=== PATIENT | male | born 1985 | race Caucasian/White ===

== ENCOUNTER 2023-08-20 13:37 | Inpatient (IN) | payer OTHER ==
[2023-08-20] MEDS: ONDANSETRON *ODT* 4 MG TABLET SL PRN (04:00)
[2023-08-20 14:46] VITALS: BMI 15.6
[2023-08-20] MEDS ORDERED: BISMUTH SUBSALICYLATE 524 MG/30 ML PO PRN (15:18)
[2023-08-20] MEDS ORDERED: MAGNESIUM HYDROX 2400MG/30ML ORAL SUSPENSION 30 ML CUP PO PRN (15:18)
[2023-08-20] MEDS ORDERED: IBUPROFEN 400 MG TABLET (FP) PO PRN (15:18)
[2023-08-20] MEDS ORDERED: ACETAMINOPHEN 325 MG TABLET (FP) PO PRN (15:18)
[2023-08-20] MEDS ORDERED: NALOXONE HCL (KLOXXADO) 8 MG SPRAY NS PRN (15:18)
[2023-08-20] MEDS ORDERED: diazePAM 5 MG TABLET PO ONE (15:18)
[2023-08-20] MEDS ORDERED: DICYCLOMINE HCL 10 MG CAPSULE PO PRN (15:18)
[2023-08-20] MEDS ORDERED: IBUPROFEN 600 MG TABLET (FP) PO PRN (15:18)
[2023-08-20] MEDS ORDERED: MAG HYDROX/AL HYDROX/SIMETH 30 ML UNIT-DOSE CUP PO PRN (15:18)
[2023-08-20] MEDS ORDERED: BENZOCAINE/MENTHOL (CHLORASEPTIC ) LOZENGE MM PRN (15:18)
[2023-08-20] MEDS ORDERED: guaiFENesin 600 MG TABLET.ER (FP) PO PRN (15:18)
[2023-08-20] MEDS ORDERED: BENZONATATE 200 MG CAPSULE PO PRN (15:18)
[2023-08-20] MEDS ORDERED: POLYETHYLENE GLYCOL (HEALTHYLAX) 3350 17 GM PACKET PO PRN (15:18)
[2023-08-20] MEDS ORDERED: diazePAM 5 MG TABLET PO PRN (15:18)
[2023-08-20] MEDS ORDERED: LOPERAMIDE HCL 2 MG CAPSULE PO PRN (15:18)
[2023-08-20] MEDS ORDERED: NALOXONE HCL 0.4 MG/ML VIAL IM PRN (15:18)
[2023-08-20] MEDS ORDERED: diazePAM 5 MG TABLET ONE (15:50)
[2023-08-20] MEDS: PRENATAL VITAMINS W/ FOLIC ACID TABLET (FP) PO SCH (15:57)
[2023-08-20] MEDS: diazePAM 5 MG TABLET PO SCH ×2 (18:27→22:27)
[2023-08-20] MEDS: METHOCARBAMOL 500 MG TABLET PO PRN (18:29)
[2023-08-20] MEDS ORDERED: MELATONIN 5 MG TABLETS PO SCH (22:00)
[2023-08-20] MEDS ORDERED: hydrOXYzine PAMOATE 25 MG CAPSULE (FP) PO PRN (22:00)
[2023-08-20] MEDS ORDERED: THIAMINE HCL 100 MG TABLET (FP) PO SCH (22:00)
[2023-08-20] MEDS: hydrOXYzine PAMOATE 25 MG CAPSULE (FP) PO PRN (22:26)
[2023-08-20] MEDS: levETIRAcetam 500 MG TABLET (FP) PO SCH (22:27)
[2023-08-21] MEDS: diazePAM 5 MG TABLET PO SCH ×2 (05:18→10:57)
[2023-08-21] MEDS: METHOCARBAMOL 500 MG TABLET PO PRN ×2 (05:21→14:59)
[2023-08-21 08:52] LABS: HEMATOCRIT 39.1 % (35.4-49); HEMOGLOBIN 13.2 GM/dL (11.7-16.9); MCH 31.4 pg (25.7-33.7); MCHC 33.6 g/dl (32.0-35.9); MEAN CELL VOLUME 93.4 fl (80-96); MEAN PLT VOLUME 6.8 fl (7.5-11.1); PLATELET COUNT 294 10^3/uL (134-434); RBC 4.19 M/mm3 (4.00-5.60); RDW 12.7 % (11.9-15.9); WHITE BLOOD COUNT 3.7 K/mm3 (4.0-10.0)
[2023-08-21 08:54] LABS: CHLORIDE 97 mmol/L (98-107); SODIUM 135 mmol/L (136-145)
[2023-08-21 09:05] LABS: CALCIUM 9.2 mg/dL (8.5-10.1)
[2023-08-21 09:06] LABS: ALBUMIN 3.8 g/dl (3.4-5.0); ANION GAP 5 mmol/L (4-13); BLOOD UREA NITROGEN 15.7 mg/dL (7-18); CO2 34 mmol/L (21-32); GLUCOSE,RANDOM 78 mg/dL (74-106)
[2023-08-21 09:09] LABS: CREATININE 0.9 mg/dL (0.55-1.3); SGOT/AST 33 U/L (15-37); SGPT/ALT < 6 U/L (13-61)
[2023-08-21 09:10] LABS: BILIRUBIN,TOTAL 1.5 mg/dL (0.2-1); TOT PROT 6.8 g/dl (6.4-8.2)
[2023-08-21 09:12] LABS: ALK PHOS 65 U/L (45-117)
[2023-08-21 09:53] VITALS: RESP 18; TEMP 98
[2023-08-21] MEDS: levETIRAcetam 500 MG TABLET (FP) PO SCH (10:57)
[2023-08-21] MEDS: PRENATAL VITAMINS W/ FOLIC ACID TABLET (FP) PO SCH (10:58)
[2023-08-21] MEDS: hydrOXYzine PAMOATE 25 MG CAPSULE (FP) PO PRN (11:00)
[2023-08-21] MEDS: ONDANSETRON *ODT* 4 MG TABLET SL PRN (11:07)
[2023-08-21 13:04] VITALS: BP 122/87; PULSE 98
[2023-08-22] MEDS ORDERED: diazePAM 5 MG TABLET PO SCH (06:00)
[2023-08-23] MEDS ORDERED: diazePAM 5 MG TABLET PO SCH (06:00)
[2023-08-24] MEDS ORDERED: diazePAM 5 MG TABLET PO ONE (06:00)
== END 2023-08-21 15:34 | disposition left against medical advice (07) | DRG 770 ==
LOC: YASAS 13:37 → Y3N 17:38
PROVIDERS: ADMIT Allergy & Immunology; ATTEND Surgery
PROC: HZ2ZZZZ Detoxification Services for Substance Abuse Treatment (ICD-10-PCS; principal; 2023-08-20)
DX: F10.230 Alcohol dependence with withdrawal, uncomplicated (principal); F12.20 Cannabis dependence, uncomplicated; F32.A Depression, unspecified; F41.9 Anxiety disorder, unspecified; G40.909 Epilepsy, unspecified, not intractable, without status epilepticus; Z87.891 Personal history of nicotine dependence
CPT/HCPCS: 36415; 80053; 80177; 80307; 85027; 86780; 87635; 87811; 93005; 93010; Q0162

== ENCOUNTER 2024-01-08 18:48 | Inpatient (IN) | payer OTHER ==
[2024-01-08 20:11] VITALS: BMI 16.6
[2024-01-08] MEDS ORDERED: BENZONATATE 200 MG CAPSULE PO PRN (22:12)
[2024-01-08] MEDS ORDERED: guaiFENesin 600 MG TABLET.ER (FP) PO PRN (22:12)
[2024-01-08] MEDS ORDERED: P-EPHED 60MG/TRIPROLIDI 2.5MG TABLET PO PRN (22:12)
[2024-01-08] MEDS ORDERED: BISMUTH SUBSALICYLATE 524 MG/30 ML PO PRN (22:12)
[2024-01-08] MEDS ORDERED: LOPERAMIDE HCL 2 MG CAPSULE PO PRN (22:12)
[2024-01-08] MEDS ORDERED: POLYETHYLENE GLYCOL (HEALTHYLAX) 3350 17 GM PACKET PO PRN (22:12)
[2024-01-08] MEDS ORDERED: MAGNESIUM HYDROX 2400MG/30ML ORAL SUSPENSION 30 ML CUP PO PRN (22:12)
[2024-01-08] MEDS ORDERED: chlordiazePOXIDE HCL 25 MG CAPSULE ONE (22:12)
[2024-01-08] MEDS ORDERED: IBUPROFEN 600 MG TABLET (FP) PO PRN (22:12)
[2024-01-08] MEDS ORDERED: DICYCLOMINE HCL 10 MG CAPSULE PO PRN (22:12)
[2024-01-08] MEDS ORDERED: IBUPROFEN 400 MG TABLET (FP) PO PRN (22:12)
[2024-01-08] MEDS ORDERED: ACETAMINOPHEN 325 MG TABLET (FP) PO PRN (22:12)
[2024-01-08] MEDS ORDERED: BENZOCAINE/MENTHOL (CHLORASEPTIC ) LOZENGE MM PRN (22:12)
[2024-01-08] MEDS ORDERED: MAG HYDROX/AL HYDROX/SIMETH 30 ML UNIT-DOSE CUP PO PRN (22:12)
[2024-01-08] MEDS ORDERED: levETIRAcetam 500 MG TABLET (FP) PO ONE (22:12)
[2024-01-08] MEDS: chlordiazePOXIDE HCL 25 MG CAPSULE PO SCH (22:19)
[2024-01-08] MEDS: levETIRAcetam 500 MG TABLET (FP) PO SCH (22:19)
[2024-01-08] MEDS ORDERED: METHOCARBAMOL 500 MG TABLET ONE (22:24)
[2024-01-08] MEDS: METHOCARBAMOL 500 MG TABLET PO PRN (22:24)
[2024-01-08] MEDS: propRANOLol HCL 10 MG TABLET PO ONE (22:24)
[2024-01-08] MEDS ORDERED: ONDANSETRON *ODT* 4 MG TABLET ONE (22:24)
[2024-01-08] MEDS ORDERED: hydrOXYzine PAMOATE 25 MG CAPSULE (FP) PO ONE (22:24)
[2024-01-08] MEDS: ONDANSETRON *ODT* 4 MG TABLET SL PRN (22:24)
[2024-01-08] MEDS: hydrOXYzine PAMOATE 25 MG CAPSULE (FP) PO SCH (22:24)
[2024-01-09] MEDS: PRENATAL VITAMINS W/ FOLIC ACID TABLET (FP) PO SCH (10:28)
[2024-01-09] MEDS: hydrOXYzine PAMOATE 25 MG CAPSULE (FP) PO PRN (10:28)
[2024-01-09] MEDS: MELATONIN 5 MG TABLETS PO SCH (22:11)
[2024-01-09] MEDS: THIAMINE HCL 100 MG TABLET (FP) PO SCH (22:12)
[2024-01-10] MEDS: chlordiazePOXIDE HCL 25 MG CAPSULE PO SCH (05:35)
[2024-01-10] MEDS: chlordiazePOXIDE HCL 25 MG CAPSULE PO PRN (13:24)
[2024-01-11] MEDS ORDERED: chlordiazePOXIDE HCL 10 MG CAPSULE PO PRN
[2024-01-11] MEDS: chlordiazePOXIDE HCL 10 MG CAPSULE PO SCH (05:36)
[2024-01-12] MEDS: chlordiazePOXIDE HCL 10 MG CAPSULE PO SCH (05:41)
[2024-01-12 06:00] VITALS: RESP 16
[2024-01-12 09:02] VITALS: BP 120/78; PULSE 74; TEMP 98.4
[2024-01-13] MEDS ORDERED: chlordiazePOXIDE HCL 10 MG CAPSULE PO ONE (05:00)
== END 2024-01-12 08:59 | disposition home or self-care (01) | DRG 775 ==
LOC: YASAS 18:48 → Y3N 22:41
PROVIDERS: ADMIT Allergy & Immunology; ATTEND Surgery
PROC: HZ2ZZZZ Detoxification Services for Substance Abuse Treatment (ICD-10-PCS; principal; 2024-01-08)
DX: F10.230 Alcohol dependence with withdrawal, uncomplicated (principal); F12.90 Cannabis use, unspecified, uncomplicated; F41.9 Anxiety disorder, unspecified; F32.A Depression, unspecified; R56.9 Unspecified convulsions; Z86.69 Personal history of other diseases of the nervous system and sense organs
CPT/HCPCS: Q0162

== ENCOUNTER 2024-01-27 17:00 | Inpatient (IN) | payer OTHER ==
[2024-01-27 17:48] VITALS: BMI 16.6
[2024-01-27] MEDS ORDERED: IBUPROFEN 600 MG TABLET (FP) PO PRN (18:36)
[2024-01-27] MEDS ORDERED: guaiFENesin 600 MG TABLET.ER (FP) PO PRN (18:36)
[2024-01-27] MEDS ORDERED: LOPERAMIDE HCL 2 MG CAPSULE PO PRN (18:36)
[2024-01-27] MEDS ORDERED: BENZONATATE 200 MG CAPSULE PO PRN (18:36)
[2024-01-27] MEDS ORDERED: P-EPHED 60MG/TRIPROLIDI 2.5MG TABLET PO PRN (18:36)
[2024-01-27] MEDS ORDERED: MAGNESIUM HYDROX 2400MG/30ML ORAL SUSPENSION 30 ML CUP PO PRN (18:36)
[2024-01-27] MEDS ORDERED: IBUPROFEN 400 MG TABLET (FP) PO PRN (18:36)
[2024-01-27] MEDS ORDERED: POLYETHYLENE GLYCOL (HEALTHYLAX) 3350 17 GM PACKET PO PRN (18:36)
[2024-01-27] MEDS ORDERED: ACETAMINOPHEN 325 MG TABLET (FP) PO PRN (18:36)
[2024-01-27] MEDS ORDERED: MAG HYDROX/AL HYDROX/SIMETH 30 ML UNIT-DOSE CUP PO PRN (18:36)
[2024-01-27] MEDS ORDERED: BENZOCAINE/MENTHOL (CHLORASEPTIC ) LOZENGE MM PRN (18:36)
[2024-01-27] MEDS ORDERED: BISMUTH SUBSALICYLATE 524 MG/30 ML PO PRN (18:36)
[2024-01-27] MEDS ORDERED: chlordiazePOXIDE HCL 25 MG CAPSULE ONE (18:48)
[2024-01-27] MEDS: chlordiazePOXIDE HCL 25 MG CAPSULE PO ONE (18:51)
[2024-01-27] MEDS: ONDANSETRON *ODT* 4 MG TABLET SL PRN (19:28)
[2024-01-27] MEDS: hydrOXYzine PAMOATE 25 MG CAPSULE (FP) PO PRN (19:28)
[2024-01-27] MEDS: DICYCLOMINE HCL 10 MG CAPSULE PO PRN (22:03)
[2024-01-27] MEDS: METHOCARBAMOL 500 MG TABLET PO PRN (22:03)
[2024-01-27] MEDS: chlordiazePOXIDE HCL 25 MG CAPSULE PO SCH (22:03)
[2024-01-27] MEDS: THIAMINE 100 MG TABLET PO SCH (22:04)
[2024-01-27] MEDS: MELATONIN 5 MG TABLETS PO SCH (22:04)
[2024-01-27] MEDS: levETIRAcetam 500 MG TABLET (FP) PO SCH (22:04)
[2024-01-28] MEDS: PRENATAL VITAMINS W/ FOLIC ACID TABLET (FP) PO SCH (10:51)
[2024-01-28] MEDS: FOLIC ACID 1 MG TABLET (FP) PO SCH (10:51)
[2024-01-28] MEDS: chlordiazePOXIDE HCL 25 MG CAPSULE PO PRN (13:48)
[2024-01-29] MEDS: chlordiazePOXIDE HCL 25 MG CAPSULE PO SCH (05:22)
[2024-01-29] MEDS: ERGOCALCIFEROL (VIT D2) 50,000 UNIT (1.25 MG) CAPSULE PO SCH (10:14)
[2024-01-29 11:48] LABS: HEMATOCRIT 38.2 % (35.4-49); HEMOGLOBIN 13.1 GM/dL (11.7-16.9); MCH 31.8 pg (25.7-33.7); MCHC 34.4 g/dl (32.0-35.9); MEAN CELL VOLUME 92.3 fl (80-96); PLATELET COUNT 407 10^3/uL (134-434); RBC 4.14 M/mm3 (4.00-5.60); RDW 13.6 % (11.9-15.9)
[2024-01-29 11:49] LABS: CHLORIDE 98 mmol/L (98-107); POTASSIUM 4.4 mmol/L (3.5-5.1); SODIUM 136 mmol/L (136-145)
[2024-01-29 11:53] LABS: ANION GAP 6 mmol/L (4-13); BLOOD UREA NITROGEN 9.8 mg/dL (7-18); CALCIUM 9.4 mg/dL (8.5-10.1); CO2 32 mmol/L (21-32); GLUCOSE,RANDOM 103 mg/dL (74-106)
[2024-01-29 11:56] LABS: SGOT/AST 41 U/L (15-37)
[2024-01-29 11:57] LABS: TOT PROT 7.4 g/dl (6.4-8.2)
[2024-01-29 11:58] LABS: ALK PHOS 68 U/L (45-117)
[2024-01-29 12:03] LABS: SGPT/ALT < 6 U/L (13-61)
[2024-01-29] MEDS: hydrOXYzine PAMOATE 25 MG CAPSULE (FP) PO PRN (15:22)
[2024-01-30] MEDS ORDERED: chlordiazePOXIDE HCL 10 MG CAPSULE PO PRN
[2024-01-30] MEDS: chlordiazePOXIDE HCL 10 MG CAPSULE PO SCH (05:24)
[2024-01-31] MEDS: chlordiazePOXIDE HCL 10 MG CAPSULE PO SCH (05:23)
[2024-01-31 13:02] VITALS: RESP 16
[2024-02-01] MEDS: chlordiazePOXIDE HCL 10 MG CAPSULE PO ONE (05:30)
[2024-02-01 09:00] VITALS: BP 127/89; PULSE 96; TEMP 97.7
== END 2024-02-01 09:16 | disposition home or self-care (01) | DRG 775 ==
LOC: YASAS 17:00 → Y6N 18:44
PROVIDERS: ADMIT Allergy & Immunology; ATTEND Surgery
PROC: HZ2ZZZZ Detoxification Services for Substance Abuse Treatment (ICD-10-PCS; principal; 2024-01-27)
DX: F10.230 Alcohol dependence with withdrawal, uncomplicated (principal); F41.9 Anxiety disorder, unspecified; G40.909 Epilepsy, unspecified, not intractable, without status epilepticus; R63.4 Abnormal weight loss; Z68.1 Body mass index [BMI] 19.9 or less, adult
CPT/HCPCS: 36415; 80053; 85027; 86780; Q0162

== ENCOUNTER 2024-03-01 13:24 | Inpatient (IN) | payer OTHER ==
[2024-03-01 14:08] VITALS: BMI 15.3
[2024-03-01] MEDS ORDERED: NALOXONE HCL 0.4 MG/ML VIAL IM PRN (14:55)
[2024-03-01] MEDS ORDERED: MAGNESIUM HYDROX 2400MG/30ML ORAL SUSPENSION 30 ML CUP PO PRN (14:55)
[2024-03-01] MEDS ORDERED: IBUPROFEN 600 MG TABLET (FP) PO PRN (14:55)
[2024-03-01] MEDS ORDERED: BENZONATATE 200 MG CAPSULE PO PRN (14:55)
[2024-03-01] MEDS ORDERED: guaiFENesin 600 MG TABLET.ER (FP) PO PRN (14:55)
[2024-03-01] MEDS ORDERED: IBUPROFEN 400 MG TABLET (FP) PO PRN (14:55)
[2024-03-01] MEDS ORDERED: MAG HYDROX/AL HYDROX/SIMETH 30 ML UNIT-DOSE CUP PO PRN (14:55)
[2024-03-01] MEDS ORDERED: BENZOCAINE/MENTHOL (CHLORASEPTIC ) LOZENGE MM PRN (14:55)
[2024-03-01] MEDS ORDERED: BISMUTH SUBSALICYLATE 262 MG/15 ML BTL PO PRN (14:55)
[2024-03-01] MEDS ORDERED: DICYCLOMINE HCL 10 MG CAPSULE PO PRN (14:55)
[2024-03-01] MEDS ORDERED: ACETAMINOPHEN 325 MG TABLET (FP) PO PRN (14:55)
[2024-03-01] MEDS ORDERED: LOPERAMIDE HCL 2 MG CAPSULE PO PRN (14:55)
[2024-03-01] MEDS ORDERED: POLYETHYLENE GLYCOL (HEALTHYLAX) 3350 17 GM PACKET PO PRN (14:55)
[2024-03-01] MEDS ORDERED: NALOXONE HCL (KLOXXADO) 8 MG SPRAY NS PRN (14:55)
[2024-03-01] MEDS ORDERED: chlordiazePOXIDE HCL 25 MG CAPSULE ONE (15:27)
[2024-03-01] MEDS ORDERED: ONDANSETRON *ODT* 4 MG TABLET ONE (15:27)
[2024-03-01] MEDS ORDERED: levETIRAcetam 500 MG TABLET (FP) PO ONE (15:27)
[2024-03-01] MEDS: ONDANSETRON *ODT* 4 MG TABLET SL PRN (15:29)
[2024-03-01] MEDS: levETIRAcetam 500 MG TABLET (FP) PO ONE (15:35)
[2024-03-01] MEDS: chlordiazePOXIDE HCL 25 MG CAPSULE PO PRN (15:35)
[2024-03-01] MEDS: chlordiazePOXIDE HCL 25 MG CAPSULE PO SCH (17:03)
[2024-03-01] MEDS: hydrOXYzine PAMOATE 25 MG CAPSULE (FP) PO PRN (19:43)
[2024-03-01] MEDS: MELATONIN 5 MG TABLETS PO SCH (22:15)
[2024-03-01] MEDS: THIAMINE 100 MG TABLET PO SCH (22:16)
[2024-03-01] MEDS: levETIRAcetam 500 MG TABLET (FP) PO SCH (22:16)
[2024-03-02] MEDS: METHOCARBAMOL 500 MG TABLET PO PRN (05:36)
[2024-03-02] MEDS: PRENATAL VITAMINS W/ FOLIC ACID TABLET (FP) PO SCH (10:17)
[2024-03-02] MEDS: levETIRAcetam 500 MG TABLET (FP) PO SCH (10:20)
[2024-03-02 10:26] LABS: CHLORIDE 97 mmol/L (98-107); HEMATOCRIT 37.9 % (35.4-49); HEMOGLOBIN 12.9 GM/dL (11.7-16.9); MCH 30.7 pg (25.7-33.7); MEAN CELL VOLUME 90.4 fl (80-96); MEAN PLT VOLUME 7.1 fl (7.5-11.1); PLATELET COUNT 210 10^3/uL (134-434); POTASSIUM 3.9 mmol/L (3.5-5.1); RBC 4.19 M/mm3 (4.00-5.60); RDW 13.1 % (11.9-15.9); SODIUM 133 mmol/L (136-145); WHITE BLOOD COUNT 2.8 K/mm3 (4.0-10.0)
[2024-03-02 10:30] LABS: CALCIUM 9.5 mg/dL (8.5-10.1)
[2024-03-02 10:31] LABS: ALBUMIN 4.1 g/dl (3.4-5.0); ANION GAP 3 mmol/L (4-13); BLOOD UREA NITROGEN 13.6 mg/dL (7-18); CO2 33 mmol/L (21-32); GLUCOSE,RANDOM 89 mg/dL (74-106)
[2024-03-02 10:33] LABS: CREATININE 0.9 mg/dL (0.55-1.3); SGOT/AST 59 U/L (15-37); SGPT/ALT 9 U/L (13-61)
[2024-03-02 10:35] LABS: ALK PHOS 83 U/L (45-117); TOT PROT 7.4 g/dl (6.4-8.2)
[2024-03-02 21:30] VITALS: RESP 16
[2024-03-03] MEDS: chlordiazePOXIDE HCL 25 MG CAPSULE PO SCH (05:26)
[2024-03-03 09:18] VITALS: BP 100/75; PULSE 107; TEMP 98
[2024-03-04] MEDS ORDERED: chlordiazePOXIDE HCL 10 MG CAPSULE PO PRN
[2024-03-04] MEDS ORDERED: chlordiazePOXIDE HCL 10 MG CAPSULE PO SCH (05:00)
[2024-03-05] MEDS ORDERED: chlordiazePOXIDE HCL 10 MG CAPSULE PO SCH (05:00)
[2024-03-06] MEDS ORDERED: chlordiazePOXIDE HCL 10 MG CAPSULE PO ONE (05:00)
== END 2024-03-03 11:35 | disposition left against medical advice (07) | DRG 770 ==
LOC: YASAS 13:24 → Y6N 15:36
PROVIDERS: ADMIT Allergy & Immunology; ATTEND Surgery
PROC: HZ2ZZZZ Detoxification Services for Substance Abuse Treatment (ICD-10-PCS; principal; 2024-03-01)
DX: F10.230 Alcohol dependence with withdrawal, uncomplicated (principal); F12.20 Cannabis dependence, uncomplicated; F10.282 Alcohol dependence with alcohol-induced sleep disorder; F41.9 Anxiety disorder, unspecified; R63.6 Underweight; Z68.1 Body mass index [BMI] 19.9 or less, adult; Z56.0 Unemployment, unspecified; Z86.11 Personal history of tuberculosis; Z86.69 Personal history of other diseases of the nervous system and sense organs; Z87.891 Personal history of nicotine dependence
CPT/HCPCS: 36415; 71046-TC-FY; 80053; 80305; 80307; 85027; 86780; 93005; 93010; Q0162

== ENCOUNTER 2025-01-06 18:54 | Inpatient (IN) | payer OTHER ==
[2025-01-06 19:20] VITALS: BMI 16.0
[2025-01-06] MEDS ORDERED: MAG HYDROX/AL HYDROX/SIMETH 30 ML UNIT-DOSE CUP PO PRN (19:48)
[2025-01-06] MEDS ORDERED: NALOXONE (NARCAN) HCL 4 MG/0.1 ML SPRAY NS PRN (19:48)
[2025-01-06] MEDS ORDERED: POLYETHYLENE GLYCOL (HEALTHYLAX) 3350 17 GM PACKET PO PRN (19:48)
[2025-01-06] MEDS ORDERED: IBUPROFEN 600 MG TABLET (FP) PO PRN (19:48)
[2025-01-06] MEDS ORDERED: LOPERAMIDE HCL 2 MG CAPSULE PO PRN (19:48)
[2025-01-06] MEDS ORDERED: DICYCLOMINE HCL 10 MG CAPSULE PO PRN (19:48)
[2025-01-06] MEDS ORDERED: MAGNESIUM HYDROX 2400MG/30ML ORAL SUSPENSION 30 ML CUP PO PRN (19:48)
[2025-01-06] MEDS ORDERED: IBUPROFEN 400 MG TABLET (FP) PO PRN (19:48)
[2025-01-06] MEDS ORDERED: ACETAMINOPHEN 325 MG TABLET (FP) PO PRN (19:48)
[2025-01-06] MEDS ORDERED: BISMUTH SUBSALICYLATE 524 MG/30 ML PO PRN (19:48)
[2025-01-06] MEDS: levETIRAcetam 500 MG TABLET (FP) PO ONE (20:45)
[2025-01-06] MEDS ORDERED: diazePAM 5 MG TABLET ONE (21:27)
[2025-01-06] MEDS ORDERED: levETIRAcetam 500 MG TABLET (FP) PO ONE (21:27)
[2025-01-06] MEDS ORDERED: ONDANSETRON *ODT* 4 MG TABLET ONE (21:30)
[2025-01-06] MEDS ORDERED: hydrOXYzine PAMOATE 25 MG CAPSULE (FP) PO ONE (21:30)
[2025-01-06] MEDS: diazePAM 5 MG TABLET PO PRN (21:31)
[2025-01-06] MEDS: hydrOXYzine PAMOATE 25 MG CAPSULE (FP) PO PRN (21:32)
[2025-01-06] MEDS: ONDANSETRON *ODT* 4 MG TABLET SL PRN (21:33)
[2025-01-06] MEDS: THIAMINE 100 MG TABLET PO SCH (22:06)
[2025-01-06] MEDS: BENZOCAINE/MENTHOL (CHLORASEPTIC ) LOZENGE MM PRN (22:07)
[2025-01-06] MEDS: MELATONIN 5 MG TABLETS PO SCH (22:24)
[2025-01-06] MEDS: levETIRAcetam 500 MG TABLET (FP) PO SCH (22:24)
[2025-01-06] MEDS: METHOCARBAMOL 500 MG TABLET PO PRN (22:26)
[2025-01-06] MEDS: BENZONATATE 200 MG CAPSULE PO PRN (22:43)
[2025-01-06] MEDS: diazePAM 5 MG TABLET PO SCH (23:15)
[2025-01-07] MEDS: guaiFENesin 600 MG TABLET.ER (FP) PO PRN (08:52)
[2025-01-07] MEDS: PRENATAL VITAMINS W/ FOLIC ACID TABLET (FP) PO SCH (10:15)
[2025-01-07 13:28] LABS: HEMATOCRIT 37.4 % (40.1-51.0); HEMOGLOBIN 12.9 g/dL (13.7-17.5); MCHC 34.5 g/dl (32.3-36.5); MEAN CELL VOLUME 83.5 fl (79.0-92.2); MEAN PLT VOLUME 8.7 fl (9.4-12.4); PLATELET COUNT 393 x10^3/uL (163-337); RDW 13.2 % (12.0-15.6)
[2025-01-07 13:48] LABS: POTASSIUM 4.2 mmol/L (3.5-5.1)
[2025-01-07 13:59] LABS: ALBUMIN 3.8 g/dl (3.4-5.0); BLOOD UREA NITROGEN 9.1 mg/dL (7-18); CALCIUM 9.2 mg/dL (8.5-10.1)
[2025-01-07 14:04] LABS: BILIRUBIN,TOTAL 0.5 mg/dL (0.2-1); TOT PROT 7.4 g/dl (6.4-8.2)
[2025-01-07 14:15] LABS: CREATININE 0.7 mg/dL (0.55-1.3)
[2025-01-07] MEDS: SUVOREXANT 10 MG TABLET PO PRN (22:25)
[2025-01-08] MEDS: diazePAM 5 MG TABLET PO SCH (05:26)
[2025-01-08] MEDS: guaiFENesin 200 MG/10 ML 10 ML UNIT-DOSE CUPS PO PRN (12:37)
[2025-01-08] MEDS: BENZOCAINE/MENTH/CETYLPYRD CL 1 EACH LOZENGE MM SCH (13:42)
[2025-01-09] MEDS: BENZOCAINE/MENTHOL 1 EACH LOZENGE MM PRN (01:56)
[2025-01-09] MEDS: diazePAM 5 MG TABLET PO SCH (05:33)
[2025-01-10] MEDS: diazePAM 5 MG TABLET PO ONE (05:44)
[2025-01-10] MEDS: diazePAM 5 MG TABLET PO SCH (17:48)
[2025-01-11] MEDS ORDERED: diazePAM 5 MG TABLET PO PRN (15:45)
[2025-01-11 21:47] VITALS: RESP 16
[2025-01-11] MEDS: diazePAM 5 MG TABLET PO PRN (22:44)
[2025-01-12 08:52] VITALS: BP 135/95; PULSE 96; TEMP 98
== END 2025-01-12 09:04 | disposition home or self-care (01) | DRG 775 ==
LOC: YASAS 18:54 → Y6N 21:39
PROVIDERS: ADMIT Allergy & Immunology; ATTEND Allergy & Immunology
PROC: HZ2ZZZZ Detoxification Services for Substance Abuse Treatment (ICD-10-PCS; principal; 2025-01-06)
DX: F10.230 Alcohol dependence with withdrawal, uncomplicated (principal); F12.20 Cannabis dependence, uncomplicated; F17.210 Nicotine dependence, cigarettes, uncomplicated; F19.280 Other psychoactive substance dependence with psychoactive substance-induced anxiety disorder; F19.282 Other psychoactive substance dependence with psychoactive substance-induced sleep disorder; F41.9 Anxiety disorder, unspecified; D64.9 Anemia, unspecified; G40.909 Epilepsy, unspecified, not intractable, without status epilepticus; R63.6 Underweight; Z68.1 Body mass index [BMI] 19.9 or less, adult
CPT/HCPCS: 0241U-QW; 36415; 80053; 80305; 80307; 85027; 86780; Q0162

== ENCOUNTER 2025-02-23 15:27 | Inpatient (IN) | payer OTHER ==
[2025-02-23 16:07] VITALS: BMI 16.6
[2025-02-23] MEDS ORDERED: MAGNESIUM HYDROX 2400MG/30ML ORAL SUSPENSION 30 ML CUP PO PRN (16:12)
[2025-02-23] MEDS ORDERED: DICYCLOMINE HCL 10 MG CAPSULE PO PRN (16:12)
[2025-02-23] MEDS ORDERED: guaiFENesin 600 MG TABLET.ER (FP) PO PRN (16:12)
[2025-02-23] MEDS ORDERED: BENZONATATE 200 MG CAPSULE PO PRN (16:12)
[2025-02-23] MEDS ORDERED: NALOXONE (NARCAN) HCL 4 MG/0.1 ML SPRAY NS PRN (16:12)
[2025-02-23] MEDS ORDERED: ONDANSETRON *ODT* 4 MG TABLET SL PRN (16:12)
[2025-02-23] MEDS ORDERED: ACETAMINOPHEN 325 MG TABLET (FP) PO PRN (16:12)
[2025-02-23] MEDS ORDERED: IBUPROFEN 400 MG TABLET (FP) PO PRN (16:12)
[2025-02-23] MEDS ORDERED: POLYETHYLENE GLYCOL (HEALTHYLAX) 3350 17 GM PACKET PO PRN (16:12)
[2025-02-23] MEDS ORDERED: LOPERAMIDE HCL 2 MG CAPSULE PO PRN (16:12)
[2025-02-23] MEDS ORDERED: IBUPROFEN 600 MG TABLET (FP) PO PRN (16:12)
[2025-02-23] MEDS ORDERED: BENZOCAINE/MENTHOL (CHLORASEPTIC ) LOZENGE MM PRN (16:12)
[2025-02-23] MEDS ORDERED: MAG HYDROX/AL HYDROX/SIMETH 30 ML UNIT-DOSE CUP PO PRN (16:12)
[2025-02-23] MEDS ORDERED: BISMUTH SUBSALICYLATE 524 MG/30 ML PO PRN (16:12)
[2025-02-23] MEDS ORDERED: chlordiazePOXIDE HCL 25 MG CAPSULE PO PRN (16:14)
[2025-02-23] MEDS: levETIRAcetam 500 MG TABLET (FP) PO ONE (17:39)
[2025-02-23] MEDS: chlordiazePOXIDE HCL 25 MG CAPSULE PO SCH (17:40)
[2025-02-23] MEDS: hydrOXYzine PAMOATE 25 MG CAPSULE (FP) PO PRN (17:42)
[2025-02-23] MEDS: METHOCARBAMOL 500 MG TABLET PO PRN (17:43)
[2025-02-23] MEDS: MELATONIN 5 MG TABLETS PO SCH (22:01)
[2025-02-23] MEDS: levETIRAcetam 500 MG TABLET (FP) PO SCH (22:01)
[2025-02-23] MEDS: THIAMINE 100 MG TABLET PO SCH (22:01)
[2025-02-24 09:26] VITALS: BP 130/90; PULSE 75; RESP 16; TEMP 97.1
[2025-02-24] MEDS: PRENATAL VITAMINS W/ FOLIC ACID TABLET (FP) PO SCH (10:44)
[2025-02-24 11:58] LABS: HEMATOCRIT 34.4 % (40.1-51.0); HEMOGLOBIN 11.6 g/dL (13.7-17.5); MCHC 33.7 g/dl (32.3-36.5); MEAN CELL VOLUME 89.4 fl (79.0-92.2); MEAN PLT VOLUME 9.6 fl (9.4-12.4); PLATELET COUNT 277 x10^3/uL (163-337); RDW 14.5 % (12.0-15.6)
[2025-02-24 12:59] LABS: CHLORIDE 102 mmol/L (98-107); POTASSIUM 3.8 mmol/L (3.5-5.1); SODIUM 139 mmol/L (136-145)
[2025-02-24 13:05] LABS: ALBUMIN 3.4 g/dl (3.4-5.0); ANION GAP 4 mmol/L (4-13); BLOOD UREA NITROGEN 7.6 mg/dL (7-18); CO2 33 mmol/L (21-32); GLUCOSE,RANDOM 71 mg/dL (74-106)
[2025-02-24 13:08] LABS: CALCIUM 8.9 mg/dL (8.5-10.1); CREATININE 0.8 mg/dL (0.55-1.3); SGOT/AST 52 U/L (15-37)
[2025-02-24 13:10] LABS: SGPT/ALT < 6 U/L (13-61); TOT PROT 6.3 g/dl (6.4-8.2)
[2025-02-24 13:11] LABS: ALK PHOS 82 U/L (45-117)
[2025-02-25] MEDS ORDERED: chlordiazePOXIDE HCL 25 MG CAPSULE PO SCH (05:00)
[2025-02-26] MEDS ORDERED: chlordiazePOXIDE HCL 10 MG CAPSULE PO PRN
[2025-02-26] MEDS ORDERED: chlordiazePOXIDE HCL 10 MG CAPSULE PO SCH (05:00)
[2025-02-27] MEDS ORDERED: chlordiazePOXIDE HCL 10 MG CAPSULE PO SCH (05:00)
[2025-02-28] MEDS ORDERED: chlordiazePOXIDE HCL 10 MG CAPSULE PO ONE (05:00)
== END 2025-02-24 09:21 | disposition left against medical advice (07) | DRG 770 ==
LOC: YASAS 15:27 → Y3N 16:34
PROVIDERS: ADMIT Allergy & Immunology; ATTEND Allergy & Immunology
PROC: HZ2ZZZZ Detoxification Services for Substance Abuse Treatment (ICD-10-PCS; principal; 2025-02-23)
DX: F10.230 Alcohol dependence with withdrawal, uncomplicated (principal); F12.20 Cannabis dependence, uncomplicated; F41.9 Anxiety disorder, unspecified; Z87.891 Personal history of nicotine dependence; Z86.69 Personal history of other diseases of the nervous system and sense organs; Z59.00 Homelessness unspecified
CPT/HCPCS: 36415; 80053; 80305; 80307; 85027; 86780